=== PATIENT | male | born 1955 | race Caucasian/White ===

== ENCOUNTER 2017-09-15 06:13 | Inpatient (IN) ==
[2017-09-15] MEDS ORDERED: Lidocaine -MPF 1% 2 ML VIAL ID ONE (06:33)
[2017-09-15] MEDS ORDERED: CeFAZolin Syr 3,000MG/30 ML 3,000 MG/30 ML SYRINGE IVPB ONE (06:33)
[2017-09-15] MEDS ORDERED: Plasma-Lyte A (PH 7.4) 1,000 ML IVC SCH (06:45)
[2017-09-15] MEDS ORDERED: Lidocaine -MPF 2% 2 ML VIAL ONE (07:14)
[2017-09-15] MEDS ORDERED: *HR* Remifentanil 2 MG VIAL IVP ONE ×2 (07:14→10:17)
[2017-09-15] MEDS ORDERED: *HR* Midazolam HCl 2 MG/2 ML VIAL ONE (07:14)
[2017-09-15] MEDS ORDERED: Ondansetron 4 MG/2 ML VIAL ONE (07:14)
[2017-09-15] MEDS ORDERED: *HR* Rocuronium Bromide 50 MG/5 ML VIAL ONE (07:14)
[2017-09-15] MEDS ORDERED: Dexamethasone 4 MG/ML VIAL ONE (07:14)
[2017-09-15] MEDS ORDERED: *HR* Propofol 200 MG/20 ML VIAL IVP ONE (07:14)
[2017-09-15] MEDS ORDERED: *HR* Succinylcholine 200 MG/10 ML VIAL IVP ONE (07:14)
[2017-09-15] MEDS ORDERED: Metoclopramide 10 MG/2 ML VIAL IVP ONE (07:20)
[2017-09-15] MEDS ORDERED: *HR* Labetalol 20 MG/4 ML SYRINGE IVP PRN (07:20)
[2017-09-15] MEDS ORDERED: *HR* Promethazine 25 MG/ML VIAL IVP PRN (07:20)
[2017-09-15] MEDS ORDERED: Famotidine 20 MG/2 ML VIAL IVP ONE (07:20)
[2017-09-15] MEDS ORDERED: Acetaminophen IV 1,000 MG/100 ML INFUS..BTL IVPB ONE (07:22)
[2017-09-15] MEDS ORDERED: Gabapentin 300 MG CAPSULE PO STA (07:22)
--- NOTE | 2017-09-15 07:27 | Anesthesia Evaluation PreOp ---
Date of Encounter: 09/15/17 Time of Encounter: 07:17 - Past History Planned Operation: L5-S1 PLIF re: spondylolisthesis Cardiac History: CHF, HTN (maintained on Ramipril, Imdur, Norvasc, Lasix, Carvedilol), Hyperlipidemia (maintained on Atorvastatin), Cardiac Surgery (CABG x 5v 2001), Pacemaker/ICD, Other (Pharmacological stress 08/2017 non-diagnostic re: HR, EF 51%, Imaging reveals fixed perfusion defect inferior/inferolateral c/ w prior infarct) Pulmonary History: REMINGTON Dx (+ CPAP use) Other Medical History: Diabetes Type II (maintained on Metformin) Anesthesia History: No Prior Anesthetic Complications, Past Anesthesia (R-elbow surgery, R-total shoulder, Revision R-total shoulder 04/2015, CABG x5v 2001) Alcohol Use: none Drug use: none, other Medications and Allergies Aspirin Enteric Coated [Aspirin EC] 81 mg PO QAM 05/15/15 [History] Atorvastatin [Lipitor] 40 mg PO HS 05/15/15 [History] Carvedilol [Coreg] 25 mg PO BID 05/15/15 [History] Furosemide [Lasix] 20 mg PO QAM 05/15/15 [History] Isosorbide MONOnitrate (24 HR) [Imdur] 30 mg PO QAM 05/15/15 [History] Metformin [Glucophage] 500 mg PO QAM 05/15/15 [History] Potassium Chloride 20 meq PO QAM 05/15/15 [History] Ramipril [Altace] 10 mg PO QAM 05/15/15 [History] Ranitidine HCl [Zantac] 150 mg PO BID 05/15/15 [History] [place] Oil/[place]-3 Fatty Acids [Fish Oil 500 mg Softgel] 1 each PO QAM 05/15/15 [History] Spironolactone [Aldactone] 12.5 mg PO QAM 05/15/15 [History] 3 Allergy/AdvReac Type Severity Reaction Status Date / Time No Known Allergies Allergy Verified 09/15/17 07:35 - Meds/Allergy Pre-op Review Medications Reviewed: Yes Allergies Reviewed: Yes Beta Blockers on Current Med List: Yes (Carvedilol) Anesthesia Results - Labs Laboratory Tests 09/09/17 09/09/17 09/09/17 15:15 15:15 15:15 WBC 7.6 Hgb 11.8 L Hct 36.4 L PT 10.9 INR 1.0 APTT 27.5 Sodium 138 Potassium 4.1 Chloride 107 Carbon Dioxide 25 BUN 20 Creatinine 0.90 Est GFR (Non-Af Amer) > 60 Est Mean Plasma Glucose Hemoglobin A1c 09/09/17 15:15 WBC Hgb Hct PT INR APTT Sodium Potassium Chloride Carbon Dioxide BUN Creatinine Est GFR (Non-Af Amer) Est Mean Plasma Glucose 120 Hemoglobin A1c 5.8 H - Imaging EKG: image reviewed Anesthesia Exam O2 Sat Height 1.75 m Height 1.75 m Weight 136.985 kg Weight 136.985 kg O2 Sat by Pulse Oximetry 98 Vital Signs Temp Pulse Resp BP Pulse Ox 97.7 F 71 18 132/81 98 09/15/17 06:41 09/15/17 06:41 09/15/17 06:41 09/15/17 06:41 09/15/17 06:41 Height: 5'8" Weight: 310# BMI = 45 NPO (# of Hours): MNOc - HEENT Pupil (Motor): Pupils equal, EOMI Mallampati: III Teeth: Poor dentition Oral Opening: Greater than 3 - SCORE CALLER LOC: Oriented SCORE CALLER Motor: Normal RUE, Normal LUE, Normal RLE, Deficit LLE (LLE pain from Hip to mid-foot), Deficit Face SCORE CALLER Sensory: Normal: RUE, LUE, RLE, Face, Deficit: LLE - Cardiac Rhythm: Regular Murmur: None - Pulmonary Breath Sounds: bilateral Clear Respiratory Effort: Symmetrical Anesthesia Assess/Plan ASA Score: 3 (MO, HTN, CHF, REMINGTON, DM) Modified Ga Scale for Level of Consciousness: Cooperative, oriented, and tranquil Anesthetic Plan: General Monitoring Plan: Standard Monitors Recovery Plan: PACU Anes Supervising Prov Stmt: PT seen/evaluated, R&B Discussed, questions answered and consent obtained. Ana Miller MD
--- NOTE | 2017-09-15 08:05 | History & Physical Report ---
Date of Encounter: 09/15/17 Time of Encounter: 08:00 24 Hour HP Update - Instructions Instructions: If the History and Physical is less than 30 days old and was completed prior to A.M. admission and or procedure and has NOT been updated on calendar day of procedure please complete this update prior to performing procedure. - Update Patient reports changes in Medical Condition: No Changes in examination, assessment, or condition: No Changes in Medication: No Preop tests/diagnostics Reviewed: Yes Pre-Op MRSA Screen: Negative Surgery Remains Indicated: Yes Consent for Planned Operative Procedure(s) Verified: Yes - Pre-Operative Checklist Preoperative Checklist Indicated: No Prophylactic Antibiotic Ordered: Yes Home Medications Include Beta Richar: Yes Beta Richar Taken Today (Day of Surgery): No Beta Richar Taken Yesterday (Day Prior to Surgery): Yes Is VTE Prophylaxis Indicated?: Yes
[2017-09-15] MEDS ORDERED: Bacitracin 50,000 UNIT, Polymyxin B Sulfate 500,000 UNIT, Sodium Chloride IRRigation 1,... IR ONE (08:15)
--- NOTE | 2017-09-15 11:37 | Orthopedic Operative Note ---
Date of procedure: 09/15/17 Pre-op diagnosis: Spondylolisthesis, lumbar stenosis Post-op diagnosis: same Operation/Findings: Posterior lumbar interbody fusion L5-S1: The patient successfully underwent general endotracheal anesthesia. The patient was given antibiotics prior to the start of the procedure. Compression boots and stockings were used for deep vein thrombosis prophylaxis. A Alexis catheter was placed. Leads for neuro monitoring were placed on the upper and lower extremities. This included the cranium. The neuro monitoring personnel confirmed there were satisfactory readings prior to the start of the procedure. The patient was turned prone on the Corey table. The back was prepped and draped in the usual sterile fashion. An incision was was marked and centered over the involved L5 and S1 levels in the mid line. The incision was deepened through the lumbar fascia. Bovie cautery and Otoole elevators were used to reflect the paraspinal musculature at the lateral extent of the transverse processes of the involved L5 and S1 levels. Betzy clamps were placed over the L5 spinous process. An intraoperative lateral fluorograph was obtained. A conversation was held between the surgeon and radiologist and both confirmed we had the correct operative levels. We then placed pedicle screws in standard fashion with the aid of fluoroscopy and anatomic landmarks. Briefly a starter awl was used. A gearshift was subsequently used to enter the military pilot hole via a transpedicular route into the vertebral body. The military pilot hole was tapped with an undersized instrument, and subsequently four 6.5 x 40 mm pedicle screws were placed bilaterally at the indicated L5 and S1 levels. The screws were tested with the aid of the neurologic monitoring staff via pedicle screw stimulation. All reading suggested there was no significant cortical wall breech. The screws were also evaluated fluoro- graphically and appeared to be in satisfactory position. We then turned our attention to the decompression portion of the procedure. We removed the supraspinous and interspinous ligaments and subsequently the insertion of the ligamentum flavum on the undersurface of the proximal L5 lamina was dislodged with a curette. We then removed the ligamentum flavum as well as undercut the L5-S1 facets at this level to decompress the lateral recesses. We also performed a L5 laminectomy. After the decompression, which was over and above that which was required to place the interbody graft, the foramen and traversing roots at this L5-S1 level were found to be free and patent. We also took part of the medial facets in order to aid in the decompression. We then protected the neural elements including the thecal sac and traversing nerve root on the right with a dural retractor. We made an annulotomy into the L5-S1 disc space and then removed entire disc material using Pituitary instruments. We trialed various size grafts after the endplates were prepared for graft insertion. A 10 x 26 enter body graft fit well within the L5-S1 disc space. We obtained some bone from the right posterior superior iliac spine through us a separate incision and combined with this with the bone which we had saved from the laminectomy portion of the procedure. This autograft bone was first placed in the anterior portion of the L5-S1 disc space and additional bone was placed within the interbody graft spacer. We then placed the interbody graft spacer obliquely across the disc space towards the midline while protecting the neural elements with a root retractor. When the graft was found to be in satisfactory position the open hearth stockyard supervisor was removed. We then copiously irrigated the wound. We then decorticated the L5 transverse processes as well as the L5-S1 facet joints of the involved levels to aid in the posterolateral fusion. We placed autograft bone in the lateral gutters over these regions. We then placed rods within the screw heads of the involved L5-S1 levels and first locked the distal screws and then subsequently locked the proximal screws so as to improve and reduce the spondylolisthesis previously seen. We then closed the wound in layers with 1 Vicryl for the fascia, 2-0 Vicryl. Subcutaneous tissue, and Dermabond was used for skin closure. Sterile dressings were placed over the wound. The patient was turned supine on a hospital bed and extubated. All sponge instruments and needle counts were correct at the end of the procedure. The patient tolerated the procedure well without complications. Anesthesia: GETA Surgeon: Gregg Gannon Jr Was there an bilingual office assistant present: No Estimated blood loss (cc): 125 Specimen: none Condition: stable Disposition: PACU
[2017-09-15] MEDS: *HR* HYDROmorphone (PF) 1 MG/ML SYRINGE IVP PRN ×4 (12:01→12:38)
--- NOTE | 2017-09-15 12:44 | Anesthesia Evaluation Post Op ---
Date of Encounter: 09/15/17 Time of Encounter: 12:43 - Vital Signs Vital Signs: Vital Signs/O2 Sat, Most Current Temp Pulse Resp BP Pulse Ox 97.1 F L 69 16 141/86 100 09/15/17 12:17 09/15/17 12:37 09/15/17 12:37 09/15/17 12:37 09/15/17 12:37 - Lungs Lungs: Clear Ascult./Percussion - Airway Airway: Non-obstructed - Cardiovascular Regular Rate - Mental Status Mental Status: Asleep with brisk response to light stimulation - Pain Pain Scale: 5 Pain Scale used: Numeric (1 - 10) - Nausea Vomiting Nausea Vomiting: Not Present - Hydration Hydration: Ice chips, Alexis catheter - Discharge PostOp Status: Transfer Patient to floor
[2017-09-15] MEDS ORDERED: *HR* OxyCODONE Immed Rel 5 MG TABLET PO PRN (13:25)
[2017-09-15] MEDS ORDERED: *HR* Morphine 2 MG/ML SYRINGE IVP PRN (15:06)
[2017-09-15] MEDS ORDERED: Ondansetron 4 MG/2 ML VIAL IVP PRN (15:07)
[2017-09-15] MEDS ORDERED: Loratadine 10 MG TABLET PO PRN ×2 (15:12→15:47)
[2017-09-15] MEDS ORDERED: Ringers Solution, Lactated 1,000 ML IVC SCH ×2 (15:15→15:47)
[2017-09-15] MEDS ORDERED: Naloxone 0.4 MG/ML INJ IVP PRN (15:47)
[2017-09-15] MEDS ORDERED: Acetaminophen 325 MG TABLET PO PRN (15:47)
[2017-09-15] MEDS ORDERED: CeFAZolin Premix DUPLEX 2,000 MG/50 ML BAG IVPB SCH (16:00)
[2017-09-15] MEDS: CeFAZolin Premix DUPLEX 2,000 MG/50 ML BAG IVPB SCH (16:19)
[2017-09-15] MEDS: *HR* OxyCODONE Immed Rel 5 MG TABLET PO PRN (19:30)
[2017-09-15] MEDS ORDERED: Famotidine 20 MG TABLET PO SCH (21:00)
[2017-09-15] MEDS: *HR* Morphine 2 MG/ML SYRINGE IVP PRN (22:15)
[2017-09-16] MEDS: CeFAZolin Premix DUPLEX 2,000 MG/50 ML BAG IVPB SCH (01:20)
[2017-09-16] MEDS: *HR* OxyCODONE Immed Rel 5 MG TABLET PO PRN ×4 (04:00→18:26)
[2017-09-16 07:03] LABS: Basophils % 0.1 %; Eosinophils % 0.1 %; Hematocrit 33.3 % (37.5-50.1); Immature Granulocytes % 0.5 % (0-4); Lymphocytes # 1.1 K/mcL (0.6-4.6); Lymphocytes % 9.9 %; Mean Corpuscular Hemoglobin 30.6 pg (28.0-33.3); Mean Corpuscular Volume 92.5 fL (83.0-100.0); Mean Platelet Volume 10.8 fL (9.4-12.4); Monocytes # 1.2 K/mcL (0.0-1.3); Monocytes % 11.1 %; Neutrophils # 8.7 K/mcL (1.6-8.9); Platelet Count 228 K/mcL (140-400); Red Cell Distribution Width 12.8 % (11.5-14.5); Segmented Neutrophils % 78.3 %
[2017-09-16 07:21] LABS: BUN/Creatinine Ratio 21 (6-26); Blood Urea Nitrogen 15 mg/dL (8-23); Calcium 8.5 mg/dL (8.6-10.3); Carbon Dioxide 27 mEq/L (23-29); Chloride 104 mEq/L (98-107); Glucose 140 mg/dL (70-105); Osmolality,Calculated 285 (280-300); Sodium 136 mEq/L (136-145); eGFR For African Americans > 60 (> 60); eGFR For Non-African Americans > 60 (> 60)
[2017-09-16] MEDS ORDERED: *HR* Metformin 500 MG TABLET PO SCH (08:00)
[2017-09-16] MEDS: Furosemide 40 MG TABLET PO SCH (08:12)
[2017-09-16] MEDS: amLODIPine 5 MG TABLET PO SCH (08:12)
[2017-09-16] MEDS: Isosorbide MONOnitrate (24 HR) 30 MG TAB.ER.24H PO SCH (08:12)
[2017-09-16] MEDS: *HR* Metformin 500 MG TABLET PO SCH (08:13)
[2017-09-16] MEDS: Aspirin Enteric Coated 81 MG Tablet PO SCH (08:13)
[2017-09-16] MEDS: Spironolactone 25 MG TABLET PO SCH (08:13)
[2017-09-16] MEDS: (Salmon Oil/Omega-3 Fatty Acids [Fish Oil 500 Mg Soft PO SCH (08:14)
[2017-09-16] MEDS ORDERED: Lisinopril 20 MG TABLET PO SCH (09:00)
[2017-09-16] MEDS ORDERED: Isosorbide MONOnitrate (24 HR) 30 MG TAB.ER.24H PO SCH (09:00)
[2017-09-16] MEDS ORDERED: Furosemide 40 MG TABLET PO SCH (09:00)
[2017-09-16] MEDS ORDERED: Spironolactone 25 MG TABLET PO SCH (09:00)
[2017-09-16] MEDS ORDERED: amLODIPine 5 MG TABLET PO SCH (09:00)
[2017-09-16] MEDS: *HR* Morphine 2 MG/ML SYRINGE IVP PRN (11:08)
[2017-09-17] MEDS: *HR* OxyCODONE Immed Rel 5 MG TABLET PO PRN ×5 (02:36→23:02)
[2017-09-17] MEDS: Aspirin Enteric Coated 81 MG Tablet PO SCH (08:06)
[2017-09-17] MEDS: Furosemide 40 MG TABLET PO SCH (08:06)
[2017-09-17] MEDS: *HR* Metformin 500 MG TABLET PO SCH (08:06)
[2017-09-17] MEDS: Isosorbide MONOnitrate (24 HR) 30 MG TAB.ER.24H PO SCH (08:07)
[2017-09-17] MEDS: amLODIPine 5 MG TABLET PO SCH (08:07)
[2017-09-17] MEDS: (Salmon Oil/Omega-3 Fatty Acids [Fish Oil 500 Mg Soft PO SCH (08:07)
[2017-09-17] MEDS: Spironolactone 25 MG TABLET PO SCH (08:07)
--- NOTE | 2017-09-17 08:09 | Spine Progress Note ---
Date of Encounter: 09/16/17 Time of Encounter: 13:30 Subjective Principal diagnosis: Spondylolisthesis, status post lumbar fusion Interval history: The patient complains of back pain. Afebrile vital signs are stable. Dressing is clean dry and intact. Neurovascularly intact with regard to bilateral lower extremities. Fires all upper and lower extremity motor groups. Assessment : stable. Plan mobilize ,continue analgesics, discharge planning. Objective Vital signs: Vital Signs Temp Pulse Resp BP Pulse Ox 09/17/17 06:57 98.7 F 87 16 109/64 96 09/17/17 03:33 99.1 F 96 18 108/70 95 09/16/17 23:48 99.5 F 92 18 115/73 93 09/16/17 18:47 98.6 F 96 18 133/81 96 09/16/17 16:18 98.5 F 90 16 100/63 94 09/16/17 12:01 97.7 F 71 17 116/68 95 Intake and Output 09/16/17 09/17/17 09/17/17 23:59 07:59 15:59 Intake Total 590 / 590 390 / 390 Output Total 350 / 350 0 / 0 Balance 240 / 240 390 / 390 Intake: Oral 290 / 290 390 / 390 Free Water 300 / 300 Output: Urine 350 / 350 0 / 0 Other: Meal Dinner Percent of Meal Consumed 45% # Voids 1 Blood Glucose* 147 137 - Labs CBC & BMP: 09/16/17 06:00 09/16/17 06:00 Labs: Abnormal lab results RBC 3.60 M/mcL (4.19-5.50) L 09/16/17 06:00 Hgb 11.0 g/dL (12.9-16.9) L 09/16/17 06:00 Hct 33.3 % (37.5-50.1) L 09/16/17 06:00 Glucose 140 mg/dL (70-105) H 09/16/17 06:00 POC Glucose 147 (58-89) H 09/16/17 20:34 Calcium 8.5 mg/dL (8.6-10.3) L 09/16/17 06:00 Consult Discharge Plan - Plan Referrals: Madison Murphy, [employer]ITY OFFICER [Primary Care Provider] -
--- NOTE | 2017-09-17 13:28 | Spine Progress Note ---
Date of Encounter: 09/17/17 Time of Encounter: 13:28 Subjective Principal diagnosis: Spondylolisthesis, status post lumbar fusion Interval history: The patient complains of back pain. Afebrile vital signs are stable. Incision is clean dry and intact. Neurovascularly intact with regard to bilateral lower extremities. Fires all upper and lower extremity motor groups. Assessment : stable. Plan mobilize ,continue analgesics, discharge planning. Radiographs tomorrow. Objective Vital signs: Vital Signs Temp Pulse Resp BP Pulse Ox 09/17/17 11:23 97.8 F 90 18 117/75 96 09/17/17 06:57 98.7 F 87 16 109/64 96 09/17/17 03:33 99.1 F 96 18 108/70 95 09/16/17 23:48 99.5 F 92 18 115/73 93 09/16/17 18:47 98.6 F 96 18 133/81 96 09/16/17 16:18 98.5 F 90 16 100/63 94 Intake and Output 09/16/17 09/17/17 09/17/17 23:59 07:59 15:59 Intake Total 590 / 590 390 / 390 Output Total 350 / 350 0 / 0 400 / 400 Balance 240 / 240 390 / 390 -400 / -400 Intake: Oral 290 / 290 390 / 390 Free Water 300 / 300 Output: Urine 350 / 350 0 / 0 400 / 400 Other: Meal Dinner Percent of Meal Consumed 45% # Voids 1 Blood Glucose* 147 137 131 - Labs CBC & BMP: 09/16/17 06:00 09/16/17 06:00 Labs: Abnormal lab results RBC 3.60 M/mcL (4.19-5.50) L 09/16/17 06:00 Hgb 11.0 g/dL (12.9-16.9) L 09/16/17 06:00 Hct 33.3 % (37.5-50.1) L 09/16/17 06:00 Glucose 140 mg/dL (70-105) H 09/16/17 06:00 POC Glucose 131 (58-89) H 09/17/17 11:31 Calcium 8.5 mg/dL (8.6-10.3) L 09/16/17 06:00 Consult Discharge Plan - Plan Referrals: Madison Murphy, HOT ROLL INSPECTOR [Primary Care Provider] -
[2017-09-18] MEDS: *HR* OxyCODONE Immed Rel 5 MG TABLET PO PRN ×3 (05:12→16:23)
[2017-09-18] MEDS: (Salmon Oil/Omega-3 Fatty Acids [Fish Oil 500 Mg Soft PO SCH (07:38)
[2017-09-18] MEDS: *HR* Metformin 500 MG TABLET PO SCH (07:56)
[2017-09-18] MEDS: amLODIPine 5 MG TABLET PO SCH (07:56)
[2017-09-18] MEDS: Furosemide 40 MG TABLET PO SCH (07:56)
[2017-09-18] MEDS: Aspirin Enteric Coated 81 MG Tablet PO SCH (07:56)
[2017-09-18] MEDS: Spironolactone 25 MG TABLET PO SCH (07:56)
[2017-09-18] MEDS: Isosorbide MONOnitrate (24 HR) 30 MG TAB.ER.24H PO SCH (07:56)
[2017-09-18 11:25] VITALS: BP 116/56
--- NOTE | 2017-09-18 17:03 | Discharge Summary ---
Date of Encounter: 09/18/17 Time of Encounter: 17:02 - Discharge Diagnosis (1) Spondylolisthesis Priority: Primary Status: Chronic Qualifiers: Spinal region: lumbar Qualified Code(s): M43.16 - Spondylolisthesis, lumbar region (2) Lumbar stenosis Priority: Secondary Status: Chronic Qualifiers: Neurogenic claudication status: without neurogenic claudication Qualified Code(s): M48.061 - Spinal stenosis, lumbar region without neurogenic claudication - Discharge Medications Prescriptions: OxyCODONE Immed Rel [Roxicodone 5 MG] 10 mg PO Q4HR PRN #30 tablet PRN Reason: Severe Pain Cyclobenzaprine [Flexeril] 10 mg PO TID PRN #90 tablet PRN Reason: Spasms Home Medications: Aspirin Enteric Coated [Aspirin EC] 81 mg PO QAM 05/15/15 [History] Atorvastatin [Lipitor] 40 mg PO HS 05/15/15 [History] Carvedilol [Coreg] 25 mg PO BID 05/15/15 [History] Isosorbide MONOnitrate (24 HR) [Imdur] 30 mg PO QAM 05/15/15 [History] Metformin [Glucophage] 500 mg PO QAM 05/15/15 [History] Potassium Chloride 20 meq PO QAM 05/15/15 [History] Ramipril [Altace] 10 mg PO QAM 05/15/15 [History] Ranitidine HCl [Zantac] 150 mg PO BID 05/15/15 [History] [place] Oil/[place]-3 Fatty Acids [Fish Oil 500 mg Softgel] 1 tab PO QAM 05/15/15 [ History] Spironolactone [Aldactone] 12.5 mg PO QAM 05/15/15 [History] Furosemide [Lasix] 40 mg PO DAILY 09/15/17 [History] Ibuprofen [Motrin] 800 mg PO Q8HR PRN 09/15/17 [History] Loratadine [Allergy Relief] 10 mg PO DAILY PRN 09/15/17 [History] amLODIPine [Norvasc] 2.5 mg PO DAILY 09/15/17 [History] Cyclobenzaprine [Flexeril] 10 mg PO TID PRN #90 tablet 09/18/17 [Rx] OxyCODONE Immed Rel [Roxicodone 5 MG] 10 mg PO Q4HR PRN #30 tablet 09/18/17 [Rx] Allergies/Adverse Reactions: 3 Allergy/AdvReac Type Severity Reaction Status Date / Time No Known Allergies Allergy Verified 09/15/17 07:35 Labs on day of discharge: Labs from last 24 hours 09/18/17 09/18/17 09/17/17 11:22 07:15 20:37 POC Glucose 132 H 148 H 156 H - Impressions ITS Impressions Lumbar Spine X-Ray 09/15/17 00:00 IMPRESSION: 1. Limited examination. 2. Posterior fusion at L5-S1 without convincing evidence of a gross hardware complication. 3. Multilevel degenerative change of the lumbar spine. 4. Grade 1 anterolisthesis at L5-S1 with minimal retrolisthesis at L4-L5. D/ / Freddie Ramos MD / Freddie Ramos MD Interpreting Provider: Freddie Ramos MD Lumbar Spine X-Ray 09/18/17 08:27 IMPRESSION: Status post posterior fusion at L5-S1 with bilateral pedicle screws. No hardware complications. Stable alignment. D/ / 09/18/2017 15:43:56 Lloyd Smallwood MD / nicole Interpreting Provider: Lloyd Smallwood MD Date of admission: 09/15/17 13:06 Primary care physician: Madison Murphy CNP Consults: 09/15/17 15:47 Consult to Occupational Therapy [CONS] Routine Comment: Evaluate, develop and implement POC Reason for Consult: Postoperative rehabilitation Consult to Physical Therapy [CONS] Routine Comment: Evaluate, develop and implement POC Reason for Consult: Postoperative rehabilitation Consult to Spine Navigator [CONS] [CONS] Routine - Patient Status Disposition: Home, Self-Care Condition: Good Functional capacity at discharge: independent ambulation Overall status at discharge: patient is progressing back to baseline - Discharge Instructions Follow Up With: Marci Gasca PAC [Physician Rfid Technician] - 09/30/17 2:15 pm Gregg Gannon Jr, MD [Partnered Physician] - 12/18/17 11:30 am Additional Instructions: Discharge Instructions: Lumbar Please call [facility] ([phone]), your Primary Care Physician, or report to the ER if you have any of the following symptoms: Fever greater that 101.5, increased pain/redness/drainage/odor for your incision site or any other concerning symptoms. ACTIVITY * May Shower * No Tub Baths * No lifting greater than 10 pounds * No Smoking * No Swimming * No off Ground Activities (Running, Climbing, Ladders, Horseback Riding) * No Driving * Wear Back Brace when up walking if lumbar fusion done MEDICATIONS: Upon discharge resume your home medications. Take all the medications as prescribed. Take a stool softener if taking narcotic pain medications. Stool softeners are only effective if you drink enough fluids. Drink 6-8 glass of water or fluids a day, unless this is not allowed for another health problem. Despite using stool softeners, if you haven't had a bowel movement in 3 days, please switch to a gentle laxative. Gentle laxatives are sold over the counter. You should have a bowel movement within 24 hours, if not call the office. You will be discharged from the hospital with a prescription for pain medication. You are encouraged to decrease the use of narcotic pain medication as tolerated. Should you require a refill, please call the office. It is best to call 48-72 hours in advance of needing a prescription refill so you don't run out of medication. WOUND CARE: Remove Dressing Tomorrow. Leave incision open to air. Pat dry when you get out of the shower. FOLLOW-UP: Please follow up with your surgeon in the orthopedic clinic in 2 weeks from the day of surgery. References: [employer] (www.apta.org) - Diet and Activity Activity: as per physical therapy Diet: advance to your usual diet - Hospital Course Hospital course: Mr. Santoro is a 62 year old male The patient had an uneventful postoperative course. Progressed from intravenous analgesic needs to oral analgesic needs only. Remained neurovascularly intact and mobilized satisfactorily. All intraoperative and/or postoperative radiographic studies were satisfactory. Patient is discharged with plan for rehabilitation and follow-up in 2 weeks post discharge on analgesic medication and patient's home medications. - Time Spent with Patient Total time spent providing and/or coordinating discharge services: - VTE Documentation of Mechanical Device: Graduated compression elastic hosiery
== END 2017-09-18 17:30 | disposition home or self-care (01) | DRG 460 ==
LOC: SAMDAY 06:13 → 3NENU 13:06
PROVIDERS: ADMIT Orthopaedic Surgery Orthopaedic Surgery of the Spine; ATTEND Orthopaedic Surgery Orthopaedic Surgery of the Spine

== ENCOUNTER 2018-04-18 17:44 | Observation (INO) ==
--- NOTE | 2018-04-18 17:52 | Emergency Department Note ---
Disposition Clinical Impression: Chest pain Qualifiers: Chest pain type: unspecified Qualified Code(s): R07.9 - Chest pain, unspecified Disposition: Admitted As Inpatient Condition: Good Referrals: NONE,PCP [Non-Partnered Physician] - Forms: ED Satisfaction Letter Time of Disposition: 18:54 Chest Pain HPI - General Chief Complaint: ED Chest Pain Stated Complaint: Chest Pain Time Seen by Provider: 04/18/18 17:51 Source: patient Mode of arrival: ambulatory Limitations: no limitations Vital Signs Reviewed: Yes Nursing Notes Reviewed: Yes - History of Present Illness HPI Narrative: Patient is a 63-year-old male with past medical history of hypertension, hyperlipidemia, diabetes, previous NH, previous cardiac bypass in 2001. He presents today due to chest pain. He states that since waking up this morning, he has had intermittent left-sided chest pressure that he describes as a squeezing sensation that lasts for a few minutes and then goes away. Occurs with both exertion and at rest. Associated with some mild shortness of breath and nausea. Denies any other diaphoresis, fevers, abdominal pain, diarrhea, constipation, dysuria, hematuria. Currently rates his chest pain a 3 out of 10 and is refusing any nitroglycerin. He takes aspirin 81 mg daily. Severity scale (1-10): 0 - Related Data Home Medications Medication Instructions Recorded Confirmed Aspirin Enteric Coated [Aspirin EC] 81 mg PO QAM 05/15/15 09/15/17 Atorvastatin [Lipitor] 40 mg PO HS 05/15/15 09/15/17 Carvedilol [Coreg] 25 mg PO BID 05/15/15 09/15/17 Isosorbide MONOnitrate (24 HR) 30 mg PO QAM 05/15/15 09/15/17 [Imdur] Metformin [Glucophage] 500 mg PO QAM 05/15/15 09/15/17 Potassium Chloride 20 meq PO QAM 05/15/15 09/15/17 Ramipril [Altace] 10 mg PO QAM 05/15/15 09/15/17 Ranitidine HCl [Zantac] 150 mg PO BID 05/15/15 09/15/17 [place] Oil/[place]-3 Fatty Acids 1 tab PO QAM 05/15/15 09/15/17 [Fish Oil 500 mg Softgel] Spironolactone [Aldactone] 12.5 mg PO QAM 05/15/15 09/15/17 Furosemide [Lasix] 40 mg PO DAILY 09/15/17 09/15/17 Ibuprofen [Motrin] 800 mg PO Q8HR PRN 09/15/17 09/15/17 Loratadine [Allergy Relief] 10 mg PO DAILY PRN 09/15/17 09/15/17 amLODIPine [Norvasc] 2.5 mg PO DAILY 09/15/17 09/15/17 Previous Rx's Medication Instructions Recorded Cyclobenzaprine [Flexeril] 10 mg PO TID PRN #90 tablet 09/18/17 OxyCODONE Immed Rel [Roxicodone 5 10 mg PO Q4HR PRN #30 tablet 09/18/17 MG] Allergies Allergy/AdvReac Type Severity Reaction Status Date / Time No Known Allergies Allergy Verified 09/15/17 07:35 All systems ED: reviewed and negative except as stated. Constitutional: Denies: fever Cardiovascular: Reports: chest pain. Denies: palpitations Respiratory: Reports: dyspnea. Denies: cough, wheezes, sputum production Gastrointestinal: Reports: nausea. Denies: abdominal pain, vomiting, diarrhea, constipation, hematemesis, melena, hematochezia Genitourinary: Denies: urgency, dysuria Integumentary: Denies: rash Neurological: Denies: headache, weakness, numbness, paresthesias Chest Pain PMH - Past Medical History Medical history: Reports: arthritis, CHF, coronary artery disease, diabetes, hyperlipidemia, hypertension, myocardial infarction Surgical history: Reports: coronary bypass (CABG), pacemaker/AICD Psychiatric history: Reports: no psych history - Social History Smoking Status: Never smoker Alcohol use: Reports: none Drug use: Reports: none, other Physical Exam - General Limitations: no limitations General appearance: alert, in no apparent distress - Head Head exam: atraumatic, normocephalic, normal inspection - Eye Eye exam: Present: normal appearance, PERRL, EOMI - ENT ENT exam: normal exam, normal oropharynx, mucous membranes moist - Neck Neck exam: Present: normal inspection, full ROM, trachea midline - Chest Chest inspection: Present: normal inspection, symmetric chest wall rise, other ( Midline surgical scar) - Respiratory Respiratory exam: Present: normal lung sounds bilaterally - Cardiovascular Cardiovascular exam: Present: regular rate, normal rhythm, normal heart sounds - Abdominal Exam Abdominal exam: Present: soft, Non-Tender. Absent: tenderness, distention, guarding, rebound, rigidity - Extremities Exam Extremities exam: Present: normal inspection, full ROM. Absent: tenderness, pedal edema - Neurological Exam Neurological exam: Present: alert, oriented X3 - Psychiatric Psychiatric exam: Present: normal affect, normal mood - Skin Skin exam: Present: warm, dry, intact, normal color Course Course Narrative: Patient hypertensive. Rest of the vitals within normal limits. Physical exam shows patient no acute distress. No reproducible tenderness of the chest. Abdomen soft and nontender. Currently rates pain a 3 out of 10 and is refusing nitroglycerin. Aspirin 325 given. Patient has a heart score of 5. If workup is negative, we will likely admit for further care and trending troponin levels. Patient agreeable with this plan. EKG shows normal sinus rhythm with no acute ST changes. There are biphasic T waves in lead 1, aVL that are chronic from previous EKG. 18:53 troponin negative. No major lab abnormality. Chest x-ray negative for any acute cardio point process. We will proceed with admission at this time for chest pain rule out and trending troponins. Vital Signs Temperature 97.8 F 04/18/18 17:49 Pulse Rate 73 04/18/18 17:49 Respiratory Rate 18 04/18/18 17:49 Blood Pressure 168/85 04/18/18 17:49 O2 Sat by Pulse Oximetry 97 04/18/18 17:49 Temperature 97.8 F 04/18/18 17:59 Pulse Rate 72 04/18/18 18:40 Respiratory Rate 18 04/18/18 18:40 Blood Pressure 109/66 04/18/18 18:40 O2 Sat by Pulse Oximetry 98 04/18/18 18:40 Oxygen Delivery Oxygen Delivery Room Air Chest Pain - MDM Narrative Medical decision making narrative: Patient hypertensive. Rest of the vitals within normal limits. Physical exam shows patient no acute distress. No reproducible tenderness of the chest. Abdomen soft and nontender. Currently rates pain a 3 out of 10 and is refusing nitroglycerin. Aspirin 325 given. Patient has a heart score of 5. If workup is negative, we will likely admit for further care and trending troponin levels. Patient agreeable with this plan. EKG shows normal sinus rhythm with no acute ST changes. There are biphasic T waves in lead 1, aVL that are chronic from previous EKG. 18:53 troponin negative. No major lab abnormality. Chest x-ray negative for any acute cardio pulm process. We will proceed with admission at this time for chest pain rule out and trending troponins. - Medical Records Medical records reviewed: Yes I reviewed the patient's medical records. - Lab Data Lab results reviewed: Yes I reviewed the patient's lab results. Result diagrams: 04/18/18 18:01 04/18/18 18:01 Lab Results 04/18/18 04/18/18 04/18/18 Range/Units 17:51 18:01 18:01 WBC 8.6 (4.3-11.1) K/mcL RBC 4.00 L (4.19-5.50) M/mcL Hgb 12.4 L (12.9-16.9) g/dL Hct 37.5 (37.5-50.1) % MCV 93.8 (83.0-100.0) fL MCH 31.0 (28.0-33.3) pg MCHC 33.1 (31.6-35.5) g/dL RDW 13.2 (11.5-14.5) % Plt Count 232 (140-400) K/mcL MPV 10.1 (9.4-12.4) fL Immature Gran % 0.3 (0-4) % Seg Neutrophils % 62.1 % Lymphocytes % 21.0 % Monocytes % 13.0 % Eosinophils % 3.0 % Basophils % 0.6 % Neutrophils # 5.4 (1.6-8.9) K/mcL Lymphocytes # 1.8 (0.6-4.6) K/mcL Monocytes # 1.1 (0.0-1.3) K/mcL Eosinophils # 0.3 (0.0-0.6) K/mcL Basophils # 0.1 (0.0-0.2) K/mcL PT 10.5 (9.4-12.1) Seconds INR 0.9 APTT 30.8 (26.0-36.0) Seconds Sodium 138 (136-145) mEq/L Potassium 4.1 (3.5-5.1) mEq/L Chloride 105 (98-107) mEq/L Carbon Dioxide 26 (23-29) mEq/L BUN 23 (8-23) mg/dL Creatinine 0.91 (0.70-1.30) mg/dL Est GFR ( Amer) > 60 (> 60) Est GFR (Non-Af Amer) > 60 (> 60) BUN/Creatinine Ratio 25 (6-26) Glucose 127 H (70-105) mg/dL Calculated Osmolality 291 (280-300) Calcium 9.0 (8.6-10.3) mg/dL Troponin I < 0.03 (< 0.04) ng/mL - Radiology Data Radiology results reviewed: Yes I reviewed the patient's radiology results. - EKG Data EKG attestation: Yes I reviewed and interpreted this EKG. EKG results narrative: 04/18/2018 at 17:57. Sinus rhythm. Rate 71. MS 191. QRS 116. QTC 421. Normal axis. No acute ST elevation or depression. Biphasic T-wave in lead 1, aVL. This is present on old EKG on 02/17/2014. Heart Score - Score History: Moderately Suspicious EKG: Non Specific repolarisation Disturbance Age: 45-65 Risk Factors: Equal/Greater than 3 risk factor or history of atherosclerotic disease Troponin: Less than normal limit HEART Score Total: 5 S.B.A.R. - S.B.A.R. Situation: Demographics, MOA Background: Presenting Complaint, Relevant PMH, Meds, & Allergies Assessment: Vital Signs, Course and respsone to treatment, Exam Concerns, Patient/Family Expectation, Pertinant Lab Results Recommendation: Barrier(s) to disposition, Recommendation based on pending studies, treatments, or consults Attestation Statement - Attestation Attestation: I examined this patient and my medical decision-making was reviewed with the Resident Physician. I agree with the documented findings, disposition and treatment plan as described except to the extent set forth below. Findings consistent with chest pain. Symptoms are typical in nature. We will plan on repeating EKGs, [place] cardiac biomarkers. We will trial nitroglycerin, administer aspirin. Patient will need admission to the hospital for cardiac consultation and further management to rule out acute coronary syndrome.
[2018-04-18] MEDS ORDERED: Aspirin 325 MG TABLET PO ONE (18:01)
[2018-04-18 18:28] LABS: Basophils # 0.1 K/mcL (0.0-0.2); Basophils % 0.6 %; Eosinophils # 0.3 K/mcL (0.0-0.6); Hematocrit 37.5 % (37.5-50.1); Hemoglobin 12.4 g/dL (12.9-16.9); Immature Granulocytes % 0.3 % (0-4); Lymphocytes # 1.8 K/mcL (0.6-4.6); Mean Corpuscular HGB Conc 33.1 g/dL (31.6-35.5); Mean Corpuscular Volume 93.8 fL (83.0-100.0); Mean Platelet Volume 10.1 fL (9.4-12.4); Monocytes # 1.1 K/mcL (0.0-1.3); Neutrophils # 5.4 K/mcL (1.6-8.9); Platelet Count 232 K/mcL (140-400); Red Cell Distribution Width 13.2 % (11.5-14.5); Segmented Neutrophils % 62.1 %
[2018-04-18 18:33] LABS: INR 0.9; Prothrombin Time 10.5 Seconds (9.4-12.1)
[2018-04-18 18:35] LABS: Activated Partial Thrombo Time 30.8 Seconds (26.0-36.0)
[2018-04-18 18:48] LABS: BUN/Creatinine Ratio 25 (6-26); Blood Urea Nitrogen 23 mg/dL (8-23); Carbon Dioxide 26 mEq/L (23-29); Chloride 105 mEq/L (98-107); Glucose 127 mg/dL (70-105); Osmolality,Calculated 291 (280-300); Potassium 4.1 mEq/L (3.5-5.1); Sodium 138 mEq/L (136-145); eGFR For Non-African Americans > 60 (> 60)
[2018-04-18 18:49] LABS: Troponin I < 0.03 ng/mL (< 0.04)
[2018-04-18] MEDS ORDERED: Naloxone 0.4 MG/ML INJ IVP PRN (19:55)
[2018-04-18] MEDS ORDERED: D5% in Water 1,000 ML IVC PRN (19:59)
[2018-04-18] MEDS ORDERED: *HR* Dextrose 50 % in Water (Syg) 50 ML SYRINGE IVP PRN (19:59)
[2018-04-18] MEDS ORDERED: Dextrose Gel 15 GM/37.5 ML TUBE PO PRN ×2 (19:59)
[2018-04-18] MEDS ORDERED: Nitroglycerin 0.4 MG TAB.SUBL SL PRN (20:00)
--- NOTE | 2018-04-18 20:38 | Internal Med History&Physical ---
Date of Encounter: 04/18/18 Time of Encounter: 20:35 Internal Medicine - H&P: HPI Chief complaint: Chest pain History of present illness: Mr. Santoro is a 63 year old male with past medical history significant for hypertension, hyperlipidemia, diabetes, CHF, coronary artery disease status post TX in 1992 and CABG in 2001 who presents with a chief complaint of chest pain. Patient states that early this afternoon while watching TV he began having symptoms of indigestion and left-sided chest wall pain which he describes as pressure-like. Chest pain was nonradiating, nonpleuritic, not positional without any aggravating or alleviating factors. Patient did state that he felt a little nauseous and the need to continuously belch. No reports of diaphoresis or lightheadedness or shortness of breath. Patient states that previously when he suffered his first TX 1992 his only symptoms were excessive sweating and anxiety. Patient states he has never smoked and does not drink. Patient has no family history of TX. He is recently retired. Patient had a nuclear stress test in August 2017 prior to low back surgery. The results were nondiagnostic for ischemia due to submaximal heart rate. Past Med Surg Social Fam HX - Past Medical History Medical history: arthritis, CHF, coronary artery disease, diabetes, hyperlipidemia, hypertension, myocardial infarction Additional medical history: pacemaker/defib, sleep apnea Psychiatric history: no psych history - Past Surgical History Surgical History: coronary bypass (CABG), pacemaker/AICD Additional surgical history: elbow,shoulder,colonsocopy - Social History Smoking Status: Never smoker Smokeless Tobacco Status: No Alcohol use: none Drug use: none, other - Family History Mother Living Status: Hx Family Cardiac Disorders: Yes (aneurysm) Father Living Status: Internal Medicine - H&P: Meds Aspirin Enteric Coated [Aspirin EC] 81 mg PO QAM 05/15/15 [History] Atorvastatin [Lipitor] 40 mg PO HS 05/15/15 [History] Carvedilol [Coreg] 25 mg PO BID 05/15/15 [History] Isosorbide MONOnitrate (24 HR) [Imdur] 30 mg PO QAM 05/15/15 [History] Metformin [Glucophage] 500 mg PO QAM 05/15/15 [History] Potassium Chloride 20 meq PO QAM 05/15/15 [History] Ramipril [Altace] 10 mg PO QAM 05/15/15 [History] Ranitidine HCl [Zantac] 150 mg PO BID 05/15/15 [History] [place] Oil/[place]-3 Fatty Acids [Fish Oil 500 mg Softgel] 1 tab PO QAM 05/15/15 [ History] Spironolactone [Aldactone] 12.5 mg PO QAM 05/15/15 [History] Furosemide [Lasix] 40 mg PO DAILY 09/15/17 [History] Ibuprofen [Motrin] 800 mg PO Q8HR PRN 09/15/17 [History] Loratadine [Allergy Relief] 10 mg PO DAILY PRN 09/15/17 [History] amLODIPine [Norvasc] 2.5 mg PO DAILY 09/15/17 [History] Cyclobenzaprine [Flexeril] 10 mg PO TID PRN #90 tablet 09/18/17 [Rx] OxyCODONE Immed Rel [Roxicodone 5 MG] 10 mg PO Q4HR PRN #30 tablet 09/18/17 [Rx] 3 Allergy/AdvReac Type Severity Reaction Status Date / Time No Known Allergies Allergy Verified 09/15/17 07:35 All Systems PM: A 10-system review of systems was performed and is negative for pertinent findings except as documented above in the HPI. - Constitutional Constitutional: no chills, no fever(s), no night sweats - EENT Eyes: no change in vision, no discharge, no pain, no photophobia Ears: no ear discharge, no ear pain, no tinnitus Nose, mouth and throat: no dysphagia, no nasal discharge, no neck pain, no sore throat - Cardiovascular Cardiovascular ROS IM: no chest pain, no diaphoresis, no dyspnea, no lightheadedness, no palpitations, no syncope - Respiratory Respiratory: no cough, no dyspnea, no wheezing, no excessive phlegm production - Gastrointestinal Gastrointestinal: no abdominal pain, no diarrhea, no hematemesis, no hematochezia, no melena, no nausea, no vomiting - Musculoskeletal Musculoskeletal ROS IM: no numbness, no tingling - Integumentary Integumentary IM: no rash, no unusual bruising - Neurological Neurological ROS: no confusion, no convulsions, no focal weakness, no numbness, no tingling, no tremor(s) - Hematologic/Lymphatic Hematologic/Lymphatic: no easy bruising - Constitutional Vitals: Temp Pulse Resp BP Pulse Ox 97.8 F 71 20 123/79 100 04/18/18 17:59 04/18/18 19:50 04/18/18 19:50 04/18/18 19:50 04/18/18 19:50 Exam: General: Alert and oriented 3. Setting up at the side of the bed, obese appearing male, pleasant, not in acute distress Skin:Normal color, no rash, 8 cm vertical incision site scar HEENT:EOM, pupils equal, round and reactive. Cardiovascular:Normal S1 & S2, no rubs, murmurs or gallops. No JVD. Pulse regular. Lungs:Normal breath sounds, no wheezes or crackles. Abdomen:Soft, non-tender, no rigidity. Extremities:No deformity, no edema or tenderness, no joint swelling or clubbing. Neurological:Normal cognition and motor skills. Pulses:Carotid and radial pulses normal +2. Rest of the physical exam is non contributory Internal Med - H&P Results - Labs CBC & Chem 7: 04/18/18 18:01 04/18/18 18:01 - Assessment and plan (1) Chest pain Current Visit: Yes Status: Acute Assessment and plan: Patient presents with left-sided chest pressure occurring at rest, nonpleuritic , not positional, not reproducible in the setting of significant history of coronary artery disease status post PCI and CABG. Patient has a implantable defibrillator. EKG showed only nonspecific T-wave changes with no ST depressions or elevations. Initial troponins are negative. Low suspicion for cardiac ischemia at this time we will nevertheless admit patient for observation , order stress test for the morning to rule out ACS. Patient received loading dose of aspirin. Will place patient on telemetry. Trend troponins. Beta cinthia. Consider cardiac consult in the morning. Qualifiers: Chest pain type: unspecified Qualified Code(s): R07.9 - Chest pain, unspecified (2) CAD (coronary artery disease) Current Visit: No Status: Acute Assessment and plan: Significant history of coronary artery disease. Patient on appropriate medical therapy. We will continue his home meds of beta cinthia and statin. Qualifiers: Coronary Disease-Associated Artery/Lesion type: bypass graft Qualified Code (s): I25.812 - Atherosclerosis of bypass graft of coronary artery of transplanted heart without angina pectoris (3) Hyperlipidemia Current Visit: No Status: Acute Assessment and plan: Resume home statin medications. Qualifiers: Hyperlipidemia type: unspecified Qualified Code(s): E78.5 - Hyperlipidemia , unspecified (4) Hypertension Current Visit: No Status: Acute Assessment and plan: Blood pressure stable. Will resume home antihypertensives. Qualifiers: Hypertension type: essential hypertension Qualified Code(s): I10 - Essential (primary) hypertension (5) Heart failure Current Visit: Yes Status: Acute Assessment and plan: Heart failure unspecified type. Patient had an echo in 2014 which was suboptimal. Per nuclear stress test as EF was 81%. Patient has ICD in place. At this time there is no evidence of an acute exacerbation. We will continue home heart failure medications Qualifiers: Heart failure type: unspecified Qualified Code(s): I50.9 - Heart failure, unspecified (6) Sleep apnea Current Visit: No Status: Acute Assessment and plan: Patient on home CPAP with a reported pressure of 12. We will see if we cannot put him on a CPAP device at night. Qualifiers: Qualified Code(s): G47.30 - Sleep apnea, unspecified - Time Spent With Patient Total time spent is greater than 50% in coordination of care (as documented) at patient's floor/unit and/or counseling patient:
[2018-04-18] MEDS: *HR* Heparin 5,000 UNIT/ML VIAL SQ SCH (21:54)
[2018-04-19 01:06] LABS: Hematocrit 34.5 % (37.5-50.1); Hemoglobin 11.4 g/dL (12.9-16.9); Mean Corpuscular Hemoglobin 31.1 pg (28.0-33.3); Mean Corpuscular Volume 94.3 fL (83.0-100.0); Platelet Count 199 K/mcL (140-400); Red Blood Count 3.66 M/mcL (4.19-5.50); Red Cell Distribution Width 13.3 % (11.5-14.5)
[2018-04-19 01:26] LABS: Alanine Aminotransferase 14 Units/L (7-52); Albumin 3.5 g/dL (3.5-5.7); Albumin/Globulin Ratio 1.3 (1.1-2.2); Alkaline Phosphatase 82 Units/L (34-104); Aspartate Amino Transferase 12 Units/L (13-39); BUN/Creatinine Ratio 22 (6-26); Bilirubin,Total 0.3 mg/dL (0.3-1.0); Blood Urea Nitrogen 22 mg/dL (8-23); Calcium 8.5 mg/dL (8.6-10.3); Carbon Dioxide 27 mEq/L (23-29); Chloride 106 mEq/L (98-107); Globulin 2.8 g/dL (2.4-3.5); Glucose 141 mg/dL (70-105); Osmolality,Calculated 292 (280-300); Sodium 138 mEq/L (136-145); Total Protein 6.3 g/dL (6.4-8.9); eGFR For Non-African Americans > 60 (> 60)
[2018-04-19] MEDS: *HR* Heparin 5,000 UNIT/ML VIAL SQ SCH ×3 (06:09→20:36)
[2018-04-19] MEDS ORDERED: Loratadine 10 MG TABLET PO PRN (09:21)
--- NOTE | 2018-04-19 10:20 | Internal Med Progress Note ---
Hospitalist Progress Note - Encounter Date of Encounter: 04/19/18 Time of Encounter: 10:18 - Subjective Interval History: Pt currently has no chest pain. - Exam Vitals: Temp Pulse Resp BP Pulse Ox 98.1 F 66 17 129/83 96 04/19/18 07:42 04/19/18 07:42 04/19/18 07:42 04/19/18 07:42 04/19/18 07:42 Exam: General: Alert and oriented 3. Setting up at the side of the bed, obese appearing male, pleasant, not in acute distress Skin:Normal color, no rash, 8 cm vertical incision site scar HEENT:EOM, pupils equal, round and reactive. Cardiovascular:Normal S1 & S2, no rubs, murmurs or gallops. No JVD. Pulse regular. Lungs:Normal breath sounds, no wheezes or crackles. Abdomen:Soft, non-tender, no rigidity. Extremities:No deformity, no edema or tenderness, no joint swelling or clubbing. Neurological:Normal cognition and motor skills. Pulses:Carotid and radial pulses normal +2. Rest of the physical exam is non contributory - Assessment and Plan (1) Hypertension Current Visit: No Status: Acute Assessment and Plan: Blood pressure stable. Will resume home antihypertensives. (2) CAD (coronary artery disease) Current Visit: No Status: Acute Assessment and Plan: Significant history of coronary artery disease. Patient on appropriate medical therapy. We will continue his home meds of beta cinthia and statin. (3) Hyperlipidemia Current Visit: No Status: Acute Assessment and Plan: Resume home statin medications. (4) Sleep apnea Current Visit: No Status: Acute Assessment and Plan: Patient on home CPAP with a reported pressure of 12. We will see if we cannot put him on a CPAP device at night. (5) Chest pain Current Visit: Yes Status: Acute Assessment and Plan: Patient presents with left-sided chest pressure occurring at rest, nonpleuritic , not positional, not reproducible in the setting of significant history of coronary artery disease status post PCI and CABG. Patient has a implantable defibrillator. EKG showed only nonspecific T-wave changes with no ST depressions or elevations. Initial troponins are negative. Low suspicion for cardiac ischemia at this time we will nevertheless admit patient for observation , order stress test for the morning to rule out ACS. Patient received loading dose of aspirin. continue patient on telemetry. serial troponins negative. Beta cinthia. cardiac stress tests in the morning. (6) Heart failure Current Visit: Yes Status: Acute Assessment and Plan: Heart failure unspecified type. Patient had an echo in 2014 which was suboptimal. Per nuclear stress test as EF was 81%. Patient has ICD in place. At this time there is no evidence of an acute exacerbation. We will continue home heart failure medications DVT Prophylaxis: Heparin subcutaneous - Time Spent with Patient Total time spent is greater than 50% in coordination of care (as documented) at patient's floor/unit and/or counseling patient: Greater than 35 minutes Plan of Care Discussed with: patient Internal Medicine: Result - Labs CBC & Chem 7: 04/19/18 00:22 04/19/18 00:22 Labs: Short CBC 04/19/18 Range/Units 00:22 WBC 7.5 (4.3-11.1) K/mcL Hgb 11.4 L (12.9-16.9) g/dL Hct 34.5 L (37.5-50.1) % Plt Count 199 (140-400) K/mcL BMP 04/19/18 00:22 Sodium 138 Potassium 4.0 Chloride 106 Carbon Dioxide 27 BUN 22 Creatinine 0.99 Glucose 141 H Calcium 8.5 L Cardiac Enzymes 04/19/18 04/19/18 Range/Units 00:22 05:42 Troponin I < 0.03 < 0.03 (< 0.04) ng/mL Liver Function 04/19/18 Range/Units 00:22 Total Bilirubin 0.3 (0.3-1.0) mg/dL AST 12 L (13-39) Units/L ALT 14 (7-52) Units/L Alkaline Phosphatase 82 (34-104) Units/L Albumin 3.5 (3.5-5.7) g/dL - ABG Interpretation ABG results: PT/INR, D-dimer PT 10.5 Seconds (9.4-12.1) 04/18/18 17:51 Consult Discharge Plan - Plan Referrals: Gt Miller DO [Primary Care Provider] - (1) Hypertension Qualifiers: Hypertension type: essential hypertension Qualified Code(s): I10 - Essential (primary) hypertension (2) CAD (coronary artery disease) Qualifiers: Coronary Disease-Associated Artery/Lesion type: bypass graft Qualified Code(s ): I25.812 - Atherosclerosis of bypass graft of coronary artery of transplanted heart without angina pectoris (3) Hyperlipidemia Qualifiers: Hyperlipidemia type: unspecified Qualified Code(s): E78.5 - Hyperlipidemia, unspecified (4) Sleep apnea Qualifiers: Qualified Code(s): G47.30 - Sleep apnea, unspecified (5) Chest pain Qualifiers: Chest pain type: unspecified Qualified Code(s): R07.9 - Chest pain, unspecified (6) Heart failure Qualifiers: Heart failure type: unspecified Qualified Code(s): I50.9 - Heart failure, unspecified
[2018-04-19] MEDS: Spironolactone 25 MG TABLET PO SCH (11:17)
[2018-04-19] MEDS: Aspirin Enteric Coated 81 MG Tablet PO SCH (11:17)
[2018-04-19] MEDS: Isosorbide MONOnitrate (24 HR) 30 MG TAB.ER.24H PO SCH (11:17)
[2018-04-19] MEDS: Lisinopril 20 MG TABLET PO SCH (11:17)
[2018-04-19] MEDS: Furosemide 40 MG TABLET PO SCH (11:18)
[2018-04-19] MEDS: amLODIPine 5 MG TABLET PO SCH (11:18)
[2018-04-19] MEDS: Famotidine 20 MG TABLET PO SCH (20:36)
[2018-04-20] MEDS: *HR* Heparin 5,000 UNIT/ML VIAL SQ SCH (05:35)
[2018-04-20 06:02] LABS: Basophils # 0.1 K/mcL (0.0-0.2); Basophils % 0.6 %; Eosinophils # 0.3 K/mcL (0.0-0.6); Eosinophils % 3.3 %; Hematocrit 37.7 % (37.5-50.1); Hemoglobin 12.5 g/dL (12.9-16.9); Immature Granulocytes % 0.5 % (0-4); Lymphocytes # 1.9 K/mcL (0.6-4.6); Lymphocytes % 23.8 %; Mean Corpuscular HGB Conc 33.2 g/dL (31.6-35.5); Mean Corpuscular Hemoglobin 31.5 pg (28.0-33.3); Mean Platelet Volume 10.6 fL (9.4-12.4); Monocytes # 0.9 K/mcL (0.0-1.3); Monocytes % 11.6 %; Neutrophils # 4.7 K/mcL (1.6-8.9); Platelet Count 213 K/mcL (140-400); Red Blood Count 3.97 M/mcL (4.19-5.50); Red Cell Distribution Width 13.3 % (11.5-14.5); Segmented Neutrophils % 60.2 %
[2018-04-20 06:20] LABS: BUN/Creatinine Ratio 29 (6-26); Blood Urea Nitrogen 25 mg/dL (8-23); Calcium 9.5 mg/dL (8.6-10.3); Carbon Dioxide 25 mEq/L (23-29); Chloride 105 mEq/L (98-107); Glucose 130 mg/dL (70-105); Osmolality,Calculated 290 (280-300); Potassium 4.1 mEq/L (3.5-5.1); Sodium 137 mEq/L (136-145); eGFR For Non-African Americans > 60 (> 60)
[2018-04-20] MEDS ORDERED: Regadenoson 0.4 MG/5 ML SYRINGE IVP ONE (06:34)
[2018-04-20] MEDS ORDERED: (Salmon Oil/Omega-3 Fatty Acids [Fish Oil 500 Mg Soft PO SCH (09:00)
[2018-04-20] MEDS: Lisinopril 20 MG TABLET PO SCH (09:58)
[2018-04-20] MEDS: Furosemide 40 MG TABLET PO SCH (09:58)
[2018-04-20] MEDS: Aspirin Enteric Coated 81 MG Tablet PO SCH (09:59)
[2018-04-20] MEDS: amLODIPine 5 MG TABLET PO SCH (10:00)
[2018-04-20] MEDS: Famotidine 20 MG TABLET PO SCH (10:00)
[2018-04-20] MEDS: Isosorbide MONOnitrate (24 HR) 30 MG TAB.ER.24H PO SCH (10:00)
--- NOTE | 2018-04-20 10:15 | Discharge Summary ---
- NOTES TO OUTPATIENT PROVIDER Notes to Outpatient Provider: f/u with Dr. Kim within a week for outpatient echo. f/u with PCP within a week. Orders not resulted at time of discharge: Pending orders 04/20/18 09:07 EV echocardiogram Routine Date of Encounter: 04/20/18 Time of Encounter: 10:09 - Discharge Diagnosis (1) Hypertension Priority: Secondary Status: Acute Qualifiers: Hypertension type: essential hypertension Qualified Code(s): I10 - Essential (primary) hypertension (2) CAD (coronary artery disease) Priority: Secondary Status: Chronic Qualifiers: Coronary Disease-Associated Artery/Lesion type: bypass graft [place] vs. transplanted heart: ute heart Associated angina: angina presence unspecified Qualified Code(s): I25.810 - Atherosclerosis of coronary artery bypass graft(s) without angina pectoris (3) Hyperlipidemia Priority: Secondary Status: Chronic Qualifiers: Hyperlipidemia type: unspecified Qualified Code(s): E78.5 - Hyperlipidemia , unspecified (4) Sleep apnea Priority: Secondary Status: Chronic Qualifiers: Sleep apnea type: unspecified type Qualified Code(s): G47.30 - Sleep apnea , unspecified (5) Chest pain Priority: Primary Status: Acute Qualifiers: Chest pain type: unspecified Qualified Code(s): R07.9 - Chest pain, unspecified (6) Heart failure Priority: Secondary Status: Chronic Qualifiers: Heart failure type: diastolic Heart failure chronicity: chronic Qualified Code(s): I50.32 - Chronic diastolic (congestive) heart failure Hospital course: Mr. Santoro is a 63 year old male with past medical history significant for hypertension, hyperlipidemia, diabetes, CHF, coronary artery disease status post AR in 1992 and CABG in 2001 who presents with a chief complaint of chest pain.Patient states that early this afternoon while watching TV he began having symptoms of indigestion and left-sided chest wall pain which he describes as pressure-like. Chest pain was nonradiating, nonpleuritic, not positional without any aggravating or alleviating factors. Patient did state that he felt a little nauseous and the need to continuously belch. No reports of diaphoresis or lightheadedness or shortness of breath. Patient states that previously when he suffered his first AR 1992 his only symptoms were excessive sweating and anxiety. Patient states he has never smoked and does not drink. Patient has no family history of AR. He is recently retired. Patient had a nuclear stress test in August 2017 prior to low back surgery. The results were nondiagnostic for ischemia due to submaximal heart rate. Patient chest pain resolved upon arrival to the ED, his vital signs have been stable, serial troponin were negative. EKG no acute ST-T change. After discussed with cardiology, patient can be discharged home with outpatient echocardiogram. He will follow up with cardiology and PCP within one week. Discharge discussed with: patient, family Time spent discussing smoking cessation with patient: more than 10 minutes - Time Spent with Patient Total time spent providing and/or coordinating discharge services: Greater than 30 minutes - Discharge Medications Home Medications: Aspirin Enteric Coated [Aspirin EC] 81 mg PO QAM 05/15/15 [History] Furosemide [Lasix] 40 mg PO DAILY 09/15/17 [History] amLODIPine [Norvasc] 2.5 mg PO DAILY 09/15/17 [History] Atorvastatin [Lipitor] 40 mg PO HS 04/20/18 [History] Carvedilol [Coreg] 25 mg PO BID 04/20/18 [History] Cetirizine HCl [Zyrtec] 10 mg PO DAILY 04/20/18 [History] Fish Oil/Dha/Epa [Fish Oil 1,200 mg Fish Oil] 1 cap PO DAILY 04/20/18 [History] Fluticasone Propionate Nasal [Flonase] 1 spr NS DAILY PRN 04/20/18 [History] Isosorbide MONOnitrate (24 HR) [Imdur] 30 mg PO DAILY 04/20/18 [History] Patient Taking Own Medication 0 each PO QAM each 04/20/18 [Rx] Potassium Chloride [K-Tab ER] 20 meq PO DAILY 04/20/18 [History] Ramipril [Altace] 10 mg PO DAILY 04/20/18 [History] Spironolactone [Aldactone] 12.5 mg PO DAILY 04/20/18 [History] metFORMIN [Glucophage] 500 mg PO DAILY 04/20/18 [History] raNITIdine HCl [Zantac] 150 mg PO BID 04/20/18 [History] Allergies/Adverse Reactions: 3 Allergy/AdvReac Type Severity Reaction Status Date / Time No Known Allergies Allergy Verified 04/20/18 08:20 Date of admission: 04/18/18 19:45 Primary care physician: Gt Miller DO Anticipated date of discharge: 04/20/18 - Constitutional Vitals: Temp Pulse Resp BP Pulse Ox 97.9 F 61 17 124/78 96 04/20/18 07:22 04/20/18 07:22 04/20/18 07:22 04/20/18 07:22 04/20/18 07:22 General appearance: Present: cooperative, A&O X 3, answers questions appropriately Exam: General: Alert and oriented 3. Setting up at the side of the bed, obese appearing male, pleasant, not in acute distress Skin:Normal color, no rash, 8 cm vertical incision site scar HEENT:EOM, pupils equal, round and reactive. Cardiovascular:Normal S1 & S2, no rubs, murmurs or gallops. No JVD. Pulse regular. Lungs:Normal breath sounds, no wheezes or crackles. Abdomen:Soft, non-tender, no rigidity. Extremities:No deformity, no edema or tenderness, no joint swelling or clubbing. Neurological:Normal cognition and motor skills. Pulses:Carotid and radial pulses normal +2. Rest of the physical exam is non contributory - Patient Status Disposition: Home, Self-Care Condition: Good Functional capacity at discharge: independent ambulation Overall status at discharge: patient is progressing back to baseline - Discharge Instructions Follow Up With: Gt Miller DO [Primary Care Provider] - - Diet and Activity Activity: increase activity as tolerated Diet: diabetic diet, low fat, low cholesterol, low salt diet
[2018-04-20] MEDS: Spironolactone 25 MG TABLET PO SCH (10:16)
[2018-04-20 10:31] VITALS: BP 128/78
--- NOTE | 2018-04-20 18:15 | Electrocardiograph Report ---
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
== END 2018-04-20 10:57 | disposition home or self-care (01) ==
LOC: 3BNU 17:44 → EMEROOARM 17:44 → 3BNU 20:07
PROVIDERS: ADMIT Internal Medicine; ATTEND Pediatrics

== ENCOUNTER 2019-08-26 10:14 | Inpatient (IN) ==
[2019-08-26] MEDS ORDERED: CeFAZolin Syr 3,000MG/30 ML 3,000 MG/30 ML SYRINGE IVPB ONE (10:51)
[2019-08-26] MEDS ORDERED: Ringers Solution, Lactated 1,000 ML IVC SCH ×2 (11:00→16:34)
[2019-08-26] MEDS ORDERED: Ethanol\\Acetic Acid\\Na Ace\\Ben 1,000 ML IRRIG.SOLN IR ONE (11:07)
[2019-08-26] MEDS ORDERED: Ondansetron 4 MG/2 ML VIAL ONE (11:32)
[2019-08-26] MEDS ORDERED: *HR* Succinylcholine 200 MG/10 ML VIAL IVP ONE (11:32)
[2019-08-26] MEDS ORDERED: Lidocaine -MPF 4% 5 ML AMPUL ONE (11:32)
[2019-08-26] MEDS ORDERED: *HR* Propofol 200 MG/20 ML VIAL IVP ONE (11:32)
[2019-08-26] MEDS ORDERED: *HR* Midazolam HCl 2 MG/2 ML VIAL ONE (11:32)
[2019-08-26] MEDS ORDERED: Dexamethasone 4 MG/ML VIAL ONE (11:32)
[2019-08-26] MEDS ORDERED: *HR* FentaNYL (PF) 100 MCG/2 ML VIAL ONE ×2 (11:32→13:02)
[2019-08-26] MEDS ORDERED: Lidocaine -MPF 2% 2 ML VIAL ONE (11:32)
[2019-08-26] MEDS ORDERED: *HR* Rocuronium Bromide 50 MG/5 ML VIAL ONE (11:32)
[2019-08-26] MEDS ORDERED: Ropivacaine/PF 0.5% 30 ML VIAL ONE (11:36)
[2019-08-26] MEDS ORDERED: ROPIVACAINE/PF/NS 0.25% 1 EACH SYRINGE INTRAART ONE (11:37)
[2019-08-26] MEDS ORDERED: *HR* PHENYLEPHRINE 1,000 MCG/10 ML SYRINGE IVP ONE (12:54)
[2019-08-26 15:13] LABS: Hematocrit 34.5 % (37.5-50.1); Hemoglobin 11.3 g/dL (12.9-16.9)
[2019-08-26] MEDS ORDERED: *HR* OxyCODONE/APAP 5/325 TABLET PO PRN (16:34)
[2019-08-26] MEDS ORDERED: Ondansetron 4 MG/2 ML VIAL IVP PRN (16:34)
[2019-08-26] MEDS ORDERED: Fluticasone Propionate Nasal 50 MCG/SPRAY BOTTLE NS PRN (16:34)
[2019-08-26] MEDS ORDERED: MOM Conc 10 ML UD.LIQ PO PRN (16:34)
[2019-08-26] MEDS ORDERED: Sennosides 8.6 MG TABLET PO PRN (16:34)
[2019-08-26] MEDS ORDERED: Temazepam 15 MG CAPSULE PO PRN (16:34)
[2019-08-26] MEDS ORDERED: *HR* OxyCODONE Immed Rel 5 MG TABLET PO PRN (16:34)
[2019-08-26] MEDS ORDERED: *HR* Enoxaparin 30 MG/0.3 ML SYRINGE SQ SCH (18:00)
[2019-08-26] MEDS: *HR* Enoxaparin 30 MG/0.3 ML SYRINGE SQ SCH (18:27)
[2019-08-26] MEDS: carvediloL 25 MG TABLET PO SCH (18:27)
[2019-08-26] MEDS: Famotidine 20 MG TABLET PO SCH (21:33)
[2019-08-27 02:00] LABS: Hematocrit 34.2 % (37.5-50.1); Hemoglobin 11.2 g/dL (12.9-16.9)
[2019-08-27 02:05] LABS: BUN/Creatinine Ratio 22 (6-26); Blood Urea Nitrogen 17 mg/dL (8-23); Calcium 8.7 mg/dL (8.6-10.3); Carbon Dioxide 24 mEq/L (23-29); Chloride 107 mEq/L (98-107); Glucose 239 mg/dL (70-105); Osmolality,Calculated 287 (280-300); Potassium 4.3 mEq/L (3.5-5.1); Sodium 134 mEq/L (136-145); eGFR For African Americans > 60 (> 60); eGFR For Non-African Americans > 60 (> 60)
[2019-08-27] MEDS ORDERED: ceFAZolin 3,000 MG in 0.9 % Sodium Chloride 100 ML IVPB ONE (06:27)
[2019-08-27] MEDS: *HR* Enoxaparin 30 MG/0.3 ML SYRINGE SQ SCH (06:36)
[2019-08-27 07:01] VITALS: BP 121/67
[2019-08-27] MEDS: Famotidine 20 MG TABLET PO SCH (07:53)
[2019-08-27] MEDS: carvediloL 25 MG TABLET PO SCH (07:53)
[2019-08-27] MEDS ORDERED: Spironolactone 25 MG TABLET PO SCH (09:00)
[2019-08-27] MEDS ORDERED: Lisinopril 20 MG TABLET PO SCH (09:00)
[2019-08-27] MEDS ORDERED: Loratadine 10 MG TABLET PO SCH (09:00)
[2019-08-27] MEDS ORDERED: Furosemide 40 MG TABLET PO SCH (09:00)
[2019-08-27] MEDS ORDERED: *HR* Digoxin 0.125 MG TABLET PO SCH (09:00)
[2019-08-27] MEDS ORDERED: NON-FORMULARY MEDICATION 1 EACH EACH (Fish Oil/Dha/Epa [Fish Oil 1,200 Mg Fish Oil] 1 CAP) PO SCH (09:00)
[2019-08-27] MEDS ORDERED: *HR* Metformin 500 MG TABLET PO SCH (09:00)
[2019-08-27] MEDS ORDERED: Isosorbide MONOnitrate (24 HR) 60 MG TAB.ER.24H PO SCH (09:00)
[2019-08-27] MEDS ORDERED: Aspirin Enteric Coated 81 MG Tablet PO SCH (09:00)
== END 2019-08-27 10:30 | disposition home or self-care (01) | DRG 483 ==
LOC: SAMDAY 10:14 → 3NENU 15:26
PROVIDERS: ADMIT Orthopaedic Surgery; ATTEND Orthopaedic Surgery

== ENCOUNTER 2022-01-28 08:15 | Inpatient (IN) ==
[2022-01-28 08:55] LABS: Basophils # 0.1 K/mcL (0.0-0.2); Basophils % 0.9 %; Eosinophils # 0.1 K/mcL (0.0-0.6); Eosinophils % 1.8 %; Hematocrit 37.8 % (37.5-50.1); Hemoglobin 12.2 g/dL (12.9-16.9); Immature Granulocytes % 0.3 % (0-4); Lymphocytes # 1.1 K/mcL (0.6-4.6); Lymphocytes % 17.5 %; Mean Corpuscular HGB Conc 32.3 g/dL (31.6-35.5); Mean Corpuscular Hemoglobin 31.4 pg (28.0-33.3); Mean Corpuscular Volume 97.2 fL (83.0-100.0); Mean Platelet Volume 11.1 fL (9.4-12.4); Monocytes # 0.6 K/mcL (0.0-1.3); Monocytes % 9.8 %; Neutrophils # 4.5 K/mcL (1.6-8.9); Platelet Count 219 K/mcL (140-400); Red Blood Count 3.89 M/mcL (4.19-5.50); Red Cell Distribution Width 13.2 % (11.5-14.5); Segmented Neutrophils % 69.7 %; White Blood Count 6.5 K/mcL (4.3-11.1)
[2022-01-28 09:08] LABS: BUN/Creatinine Ratio 21 (6-26); Blood Urea Nitrogen 22 mg/dL (8-23); Calcium 8.9 mg/dL (8.6-10.3); Carbon Dioxide 26 mEq/L (23-29); Chloride 107 mEq/L (98-107); Glucose 140 mg/dL (70-105); Osmolality,Calculated 296 (280-300); Potassium 4.2 mEq/L (3.5-5.1); Sodium 140 mEq/L (136-145); Troponin I < 0.03 ng/mL (< 0.04); eGFR For African Americans > 60 (> 60); eGFR For Non-African Americans > 60 (> 60)
[2022-01-28] MEDS ORDERED: Naloxone 0.4 MG/ML INJ IVP PRN (10:25)
[2022-01-28] MEDS ORDERED: D5% in Water 1,000 ML IVC PRN (10:27)
[2022-01-28] MEDS ORDERED: *HR* Dextrose 50 % in Water (Syg) 50 ML SYRINGE IVP PRN (10:27)
[2022-01-28] MEDS ORDERED: Dextrose Gel 15 GM/37.5 ML TUBE PO PRN ×2 (10:27)
[2022-01-28 10:53] LABS: Chol/HDL Ratio 3.1 (0-4.9); Cholesterol 118 mg/dL (< 200); HDL Cholesterol 38 mg/dL (40-59); LDL Cholesterol,Calculated 61 mg/dL (< 100); Magnesium 1.8 mg/dL (1.6-2.6); Triglycerides 97 mg/dL (< 150)
[2022-01-28] MEDS: Insulin LISPRO 300 UNITS/3 ML VIAL SUBQ SCH ×3 (13:19→20:47)
[2022-01-28 16:30] LABS: Estimated Average Glucose 143 mg/dl; Hemoglobin A1C 6.6 %
[2022-01-28] MEDS ORDERED: carvediloL 25 MG TABLET PO SCH (17:00)
[2022-01-28] MEDS ORDERED: *HR* Heparin 5,000 UNIT/ML VIAL SQ SCH ×2 (18:00)
[2022-01-28] MEDS: Apixaban 5 MG TABLET PO SCH (20:55)
[2022-01-28] MEDS: carvediloL 25 MG TABLET PO SCH (20:55)
[2022-01-29] MEDS ORDERED: Regadenoson 0.4 MG/5 ML SYRINGE IVP ONE ×2 (06:46→11:54)
[2022-01-29] MEDS: Insulin LISPRO 300 UNITS/3 ML VIAL SUBQ SCH ×4 (07:23→20:36)
[2022-01-29] MEDS ORDERED: Isosorbide MONOnitrate (24 HR) 60 MG TAB.ER.24H PO SCH (09:00)
[2022-01-29] MEDS: Aspirin Enteric Coated 81 MG Tablet PO SCH (13:44)
[2022-01-29] MEDS: Cholecalciferol (D-3) 1,000 UNIT (25MCG) TABLET PO SCH (13:44)
[2022-01-29] MEDS: Isosorbide MONOnitrate (24 HR) 60 MG TAB.ER.24H PO SCH (13:44)
[2022-01-29] MEDS: carvediloL 25 MG TABLET PO SCH ×2 (13:44→20:36)
[2022-01-29] MEDS: lisinopriL 20 MG TABLET PO SCH (13:44)
[2022-01-29] MEDS: Famotidine 20 MG TABLET PO SCH (13:44)
[2022-01-29] MEDS: Apixaban 5 MG TABLET PO SCH (13:45)
[2022-01-29] MEDS: Furosemide 40 MG TABLET PO SCH (13:45)
[2022-01-29] MEDS ORDERED: Perflutren Lipid Microsphere 1.3 ML in 0.9 % Sodium Chloride 8.7 ML IVP PRN (14:01)
[2022-01-30] MEDS: Furosemide 40 MG TABLET PO SCH (09:12)
[2022-01-30] MEDS: Cholecalciferol (D-3) 1,000 UNIT (25MCG) TABLET PO SCH (09:12)
[2022-01-30] MEDS: Famotidine 20 MG TABLET PO SCH (09:12)
[2022-01-30] MEDS: Isosorbide MONOnitrate (24 HR) 60 MG TAB.ER.24H PO SCH (09:12)
[2022-01-30] MEDS: carvediloL 25 MG TABLET PO SCH (09:12)
[2022-01-30] MEDS: Insulin LISPRO 300 UNITS/3 ML VIAL SUBQ SCH ×2 (09:12→11:28)
[2022-01-30] MEDS: lisinopriL 20 MG TABLET PO SCH (09:12)
[2022-01-30] MEDS: Aspirin Enteric Coated 81 MG Tablet PO SCH (09:13)
[2022-01-30] MEDS ORDERED: 0.9 % Sodium Chloride 2,000 ML ONE (09:50)
[2022-01-30] MEDS ORDERED: ISOVUE-370 200 ML INFUS..BTL ONE (09:51)
[2022-01-30] MEDS ORDERED: Heparin 1,000 UNITS/500 mL 500 ML ONE (09:51)
[2022-01-30] MEDS ORDERED: *HR* Heparin 10,000 UNIT/10 ML VIAL ONE (09:51)
[2022-01-30] MEDS ORDERED: Nitroglycerin 1,000 MCG/5 ML VIAL IV ONE (09:51)
[2022-01-30 10:36] VITALS: TEMP 98.1
[2022-01-30] MEDS ORDERED: *HR* Midazolam HCl 2 MG/2 ML VIAL ONE ×2 (13:52→14:17)
[2022-01-30] MEDS ORDERED: *HR* FentaNYL (PF) 100 MCG/2 ML VIAL ONE (13:52)
[2022-01-30 15:27] VITALS: PULSE 59; O2SAT 96
[2022-01-30 17:17] VITALS: BP 124/79
== END 2022-01-30 17:14 | disposition home or self-care (01) | DRG 287 ==
LOC: EMEROOARM 08:15 → 3BNU 08:15 → SUATTDRO 15:10 → 3BNU 15:38
PROVIDERS: ADMIT Internal Medicine; ATTEND Internal Medicine